=== PATIENT | male | born 1965 | race Two or more races ===

== ENCOUNTER → 2024-12-07 | Outpatient (CLI) | payer MEDICAID, SELFPAY ==
--- NOTE | 2024-12-07 10:56 | XR_ITS ---
Examination: Lumbar spine, 5 views Technique: Lumbar spine AP, lateral, coned lateral lower lumbar spine, bilateral obliques 5 views Exam date and time: December 07, 2024 1050 hrs. Indications: Injury to lower back 8 months ago with persistent back pain. Findings: Moderate osteopenia No lumbar fracture Diffuse [id number] lumbar disc narrowing most prominent at L5-S1 No spondylolisthesis Impression: No lumbar fracture Diffuse [id number] lumbar degenerative disc disease
== END | disposition home or self-care (01) ==
PROVIDERS: Referring Provider Nurse Practitioner; Visit Provider Nurse Practitioner
DX: M51.369 Other intervertebral disc degeneration, lumbar region without mention of lumbar back pain or lower extremity pain (principal)
CPT/HCPCS: 72110

== ENCOUNTER → 2025-01-02 | Outpatient (CLI) | payer MEDICAID, SELFPAY ==
--- NOTE | 2025-01-02 16:35 | XR_ITS ---
Examination: Knee bilateral, 6 views Technique: Knee AP, lateral, oblique each knee total 6 views Date and time of exam: January 02, 2025 at 1638 hours INDICATIONS: Knee pain acute onset this week FINDINGS: Mild osteopenia. No fracture or dislocation involving either knee Mild bilateral tricompartment osteoarthritis Small bilateral knee effusions IMPRESSION: Mild bilateral tricompartment osteoarthritis
== END | disposition home or self-care (01) ==
LOC: CDIM 16:31
PROVIDERS: Referring Provider Nurse Practitioner; Visit Provider Nurse Practitioner
DX: M17.0 Bilateral primary osteoarthritis of knee (principal)
CPT/HCPCS: 73562

== ENCOUNTER 2025-02-09 12:29 | Inpatient (IN) | payer MEDICAID, SELFPAY ==
[2025-02-09] VITALS (11 sets, daily range): BP systolic 106–149; BP diastolic 59–89; PULSE 48–86; RESP 16–29; TEMP 36.2–39.4; O2SAT 91–100; BMI 27.2; BMI 26.4; BMI 27.8
--- NOTE | 2025-02-09 13:12 | PC.NURSE ---
called for pt from lobby/outside, no answerx1@ [id number]
--- NOTE | 2025-02-09 13:28 | XR_ITS ---
Examination: AP chest lateral 2 views TECHNIQUE: AP labral portable upright chest 2 views Exam date and time: February 09, 2025, 1358 hours INDICATIONS: Shortness but chest pain today FINDINGS: No significant cardiac enlargement. Mild vascular congestion. No lobar pneumonia or pulmonary edema IMPRESSION: Mild vascular congestion
--- NOTE | 2025-02-09 13:28 | EKG_ITS ---
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
--- NOTE | 2025-02-09 13:29 | PD.EDRME ---
Rapid Medical Screening Exam RME Arrival date/time: 02/09/25 12:29 This is a 59-year-old male that comes in with complaints of fever, body aches, headache, sore throat that started 2 days ago. Patient states he was coughing and had some chest pain as well. I have greeted and performed a focused initial assessment of this patient. Initial appropriate labs ordered at this time. A comprehensive ED assessment and evaluation of the patient and analysis of all test and completion of medical decision making process will be conducted by additional ED provider. Chief Complaint: Chest Pain Time Seen by Provider: 02/09/25 12:49 Vital signs: Vital Signs Temperature 102.9 F H 02/09/25 13:19 Pulse Rate 80 02/09/25 13:19 Respiratory Rate 18 02/09/25 13:19 Blood Pressure 149/80 H 02/09/25 13:19 Pulse Oximetry (%) 94 L 02/09/25 13:19 Oxygen Delivery Method Room Air 02/09/25 13:19
[2025-02-09] MEDS: ACETAMINOPHEN 500 MG TABLET 1000 MG PO (13:46)
[2025-02-09] MEDS: IBUPROFEN TAB 400 MG TABLET 800 MG PO (13:47)
--- NOTE | 2025-02-09 14:16 | EKG_ITS ---
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
--- NOTE | 2025-02-09 15:20 | PC.NURSE ---
PT CAME INTO ED FOR CHEST PAIN
[2025-02-09 15:42] LABS: Basophils % (Auto) 0 % (0-2.5); Eosinophils % (Auto) 0 % (0-10); Hematocrit 36.1 % (41.0-53.0); Hemoglobin 12.8 g/dL (13.5-16.0); Immature Granulocytes % (Auto) 0 % (0-0); Immature Granulocytes Auto 0.02 Thou/mm3 (0.00-0.00); Lymphocytes # (Auto) 0.2 Thou/mm3 (1.0-4.8); Lymphocytes % (Auto) 4 % (10-50); Mean Corpuscular HGB Conc 35.5 g/dl (31.0-37.0); Mean Corpuscular Hemoglobin 28.5 pg (25.0-35.0); Mean Corpuscular Volume 80 fL (80-100); Monocytes # (Auto) 0.3 Thou/mm3 (0.0-0.8); Monocytes % (Auto) 5 % (0-12); Neutrophils # (Auto) 4.3 Thou/mm3 (1.8-7.7); Neutrophils % (Auto) 90 % (37-80); Nucleated Red Blood Cell % 0 /100 WBC (0); Platelet Count 115 Thou/mm3 (140-440); RDW Standard Deviation 37.2 fL (35.1-43.9); Red Blood Count 4.49 Miln/mm3 (4.50-5.90); White Blood Count 4.8 Thou/mm3 (3.8-10.6)
[2025-02-09 16:02] LABS: B-Type Natriuretic Peptide 59 pg/mL (0-100)
[2025-02-09 16:05] LABS: Alanine Aminotransferase 19 U/L (10-49); Albumin, Serum 4.2 gm/dL (3.5-5.0); Albumin/Globulin Ratio 1.6 (1.2-2.2); Alkaline Phosphatase 57 U/L (46-116); Anion Gap 10 (7-16); Aspartate Amino Transferase 26 U/L (0-34); BUN/Creatinine Ratio 14 Ratio (12-20); Bilirubin,Total 0.7 mg/dL (0.3-1.2); Blood Urea Nitrogen 13 mg/dL (9-23); Calcium 8.1 mg/dL (8.3-10.6); Calcium (Corrected) 8.1 mg/dL (8.5-10.1); Carbon Dioxide 24.5 mMol/L (20.0-31.0); Chloride 103 mMol/L (98-107); Creatinine (Component) 0.9 mg/dL (0.6-1.3); Estimated Creatinine Clearance 105.3 mL/min (>60); Globulin 2.6 gm/dL (2.3-3.5); Glucose 111 mg/dL (74-106); Lipase 30 U/L (12-53); Osmolality,Calculated 274 (275-295); Potassium 3.4 mMol/L (3.4-5.1); Sodium 137 mMol/L (136-145); Total Protein 6.8 gm/dL (5.7-8.2); Troponin I < 0.020 ng/mL (0.0-0.045); eGFR > 60 See Note
[2025-02-09 16:07] LABS: Thyroid Stimulating Hormone 1.25 uIU/mL (0.55-4.78)
[2025-02-09 18:46] LABS: Creatine Kinase 205 U/L (34-171); Magnesium 1.5 mg/dL (1.6-2.6); Phosphorous 3.4 mg/dL (2.4-5.1)
--- NOTE | 2025-02-09 19:13 | EKG_ITS ---
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
--- NOTE | 2025-02-09 19:23 | PC.NURSE ---
provider put in order for new ekg does not want done until midnight
--- NOTE | 2025-02-09 19:30 | ESHP_ITS ---
<Statement entered by Lillian Hernandez MD - 02/10/25 06:46> Patient was seen and examined at bedside. I agree on most of the assessment and plan of this patient. - Patient's plan and care discussed with my attending, Dr. Mason Hernandez MD Internal Medicine PGY-2 Documentation for date of: 02/09/25 HPI History of Present Illness History of present illness: Js is a 59 y/o male with PMHx of hyperlipidemia, ? Heart failure, ? Hypertension who comes in for an evaluation of fever, chills, and chest pain going across chest wall. Patient reports that this had started this morning in which he began to feel some chest pain with some palpitations. He also says that he attended a of his cousin yesterday that was in town and he says that he was close with his cousin. Denies having any shortness of breath headache, vomiting, passing out. He says that he goes to [place] often and that he was diagnosed with some kind of heart disease in which he takes a medicine (appears to be aspirin 500 mg in [place]) for his heart. He also says that he gets some epigastric pain and and has had an endoscopy and was told to avoid lying flat to avoid those symptoms. He denies any recent sick contacts or anyone near him feeling like this. He rates his chest pain as minimal at this time. He denies being on any other heart medicine. He does not know if he has atrial fibrillation. No other complaints this time. ED course: Patient arrived to the ED with a temperature of 103, heart rate 88, respiratory rate 18, blood pressure 149/80, saturating 94% on room air. He was worked up was found to have potassium of 3.4, BUN/creatinine 13 and 0.9 respectively, white count 9.8, hemoglobin 12.8, AST ALT 26 and 19 respectively, BNP 54, TSH 1.25. Chest x-ray showed mild congestion. 2 EKGs were done, despite the read showing atrial fibrillation, however my interpretation is not A-fib as this appears to be some form of 2:1 rhythm rate under 100, no ST changes, and possible delta wave seen in lead II of the first EKG. Patient was given 1 g Tylenol and ibuprofen 800 mg. Medicine was consulted and patient was admitted for observation for further workup. PMHx: As above Surgeries: Denies having any surgeries Meds: Limited at this time Allergies: Says he is allergic to penicillins Family Hx: Family history significant for diabetes with his mom. No CAD, stroke history or cancer history per patient. Social Hx: No from [place] in mid October. Works in the [employer]. Used to be a heavy drinker long time ago, however does not drink anymore and will only drink on occasion. No smoking history. Used to snort cocaine back in day however has does not do it anymore. No IV drug use. Review of Systems Review of Systems Narrative Review of Systems: Constitutional: Positive fever, positive chills, fatigue, weakness, weight loss HEENT: No eye pain, vision loss, ear pain, hearing loss, dysphagia, Cardiovascular: Positive chest pain, palpitations, edema, pain with walking Respiratory: No cough, shortness of breath, wheezing GI: No NVD, abdominal pain, constipation, blood in stool, loss of appetite, heartburn Extremities: No presence of pitting edema MSK: No back pain, joint pain, joint swelling Neuro: No dizziness, numbness, weakness, headaches, seizures, tremors Psych: No anxiety, depression Exam Vital Signs Temp Pulse Resp BP Pulse Ox O2 Del Method 97.8 F 49 L 21 H 117/72 94 L Room Air 02/09/25 18:28 02/09/25 18:28 02/09/25 18:28 02/09/25 18:28 02/09/25 18:28 02/09/25 18:28 Narrative Exam General: AAOx3, NAD, [place]-speaking male, well-built HEENT: Moist mucous membranes, conjunctiva clear, EOMI, PERRLA, Cardiovascular: S1, S2, radial pulses +2 bilat, bradycardia, reproducible chest pain that is minimal and right and left lower pectoralis Pulmonary: CTAB bilat no cough, no wheezing GI: No tenderness to light or deep palpitation, no guarding, rigidity, rebound tenderness or distension Extremities: No presence of trace or pitting edema in lower extremities bilaterally, dorsalis pedis pulses +2 bilaterally Neuro: AAOx3, no focal motor or sensory deficits in the UE or LE bilat Psych: Good judgement, thought and behavior. Cooperative Results: Labs 02/10/25 06:14 02/10/25 06:14 Labs: Short CBC 02/09/25 Range/Units 15:12 WBC 4.8 (3.8-10.6) Thou/mm3 Hgb 12.8 L (13.5-16.0) g/dL Hct 36.1 L (41.0-53.0) % Plt Count 115 L (140-440) Thou/mm3 BMP 02/09/25 15:12 Sodium 137 Potassium 3.4 Chloride 103 Carbon Dioxide 24.5 BUN 13 Creatinine 0.9 Glucose 111 H Calcium 8.1 L Cardiac Enzymes 02/09/25 Range/Units 15:12 Total Creatine Kinase 205 H (34-171) U/L Troponin I < 0.020 (0.0-0.045) ng/mL Liver Function 02/09/25 Range/Units 15:12 Total Bilirubin 0.7 (0.3-1.2) mg/dL AST 26 (0-34) U/L ALT 19 (10-49) U/L Alkaline Phosphatase 57 (46-116) U/L Albumin 4.2 (3.5-5.0) gm/dL Quality Measures Quality Measures VTE prophylaxis (SCDs) Medications Home Medications and Allergies Home Medications ?Medication ?Instructions ?Recorded ?Confirmed ?Type No Known Home Medications 02/09/2501/01 History Allergies Allergy/AdvReac Type Severity Reaction Status Date / Time Penicillins Allergy Verified 02/09/25 13:42 Visit Medications Acetaminophen (Acetaminophen 325 Mg Tablet) 650 mg PO Q6H PRN PRN Reason: Fever >100 or pain 1-3 Stop: 03/11/25 19:22 Magnesium Sulfate (Magnesium Sulfate Ivpb) 2 gm in 50 mls @ 25 mls/hr IV X1 ONE Stop: 02/09/25 21:19 Potassium Chloride (Kcl Ivpb) 10 meq in 100 mls @ 100 mls/hr IV Q1H BRY Stop: 02/09/25 21:27 Ondansetron HCl (Ondansetron Inj 2 Mg/Ml Inj 2 Ml) 4 mg IV Q6H PRN; Protocol PRN Reason: NAUSEA OR VOMITING Stop: 03/11/25 19:22 Pantoprazole Sodium (Pantoprazole 40 Mg Tablet) 40 mg PO QDAY BRY Stop: 03/11/25 19:29 Potassium Chloride (Potassium Chloride 20 Meq Tabcr) 40 meq PO X1 ONE Stop: 02/09/25 19:24 Discontinued Medications Acetaminophen (Acetaminophen 500 Mg Tablet) 1,000 mg PO X1 ONE Stop: 02/09/25 13:30 Last Admin: 02/09/25 13:46 Dose: 1,000 mg Ibuprofen (Ibuprofen Tab 400 Mg Tablet) 800 mg PO X1 ONE Stop: 02/09/25 13:30 Last Admin: 02/09/25 13:47 Dose: 800 mg Assessment & Plan Plan Assessment Js is a 59 y/o male with PMHx of hyperlipidemia, ? Heart failure, ? Hypertension who is admitted for asymptomatic bradycardia. #Asymptomatic bradycardia #Chest pain DDx: Sick sinus syndrome, heart block, medication induced, infectious including myocarditis, infective endocarditis, electrolyte depletion At this time this patient is not asymptomatic due to nature of his symptoms which include fever, chills which was addressed with antipyretics Symptomatic bradycardia would likely presents with weakness, dizziness and potentially passing out, however this patient's symptoms appear to be infectious with minimal and reproducible chest pain Patient recently also had a stressful events in his life including attending a yesterday Medication history is limited at this time as patient takes medicines from [place] so unsure what additional medicines patient may take Patient could have infectious cause of bradycardia including myocarditis or infective endocarditis, however he denies any history of drug use but this does not rule out myocarditis or any infectious process Patient does have electrolyte derangements including potassium 3.4 and magnesium 1.5 At patient's age unlikely patient would have sick sinus syndrome however this cannot be ruled out at this time Patient will likely require further workup as patient began to become bradycardic after being admitted and was given antipyretics EKG does appear to have 2-1 rhythm, P waves appear to be present No ST changes on EKG, reproducible chest pain is present and also biomarkers are negative at this point, unlikely cardiac chest pain could be musculoskeletal or related to infection Due to blood pressure being stable at this time and patient not complaining of weakness, patient will not likely require ICU point of care in case of transcutaneous pacing to be needed however this can change at any point in time Will recheck EKG after electrolyte derangements are corrected Due to concern for infective endocarditis we will start patient on antibiotics Plan: ? Cardiology consulted, appreciate recs ? Telemetry ? Keep potassium and magnesium above 4 and 2 respectively ? EKG post electrolyte replenishment ? Atropine as needed ? Echo ? Trend troponin ? Cardiac stratification ? Follow-up MRSA screen ? Rocephin 2 g and vancomycin pharmacy to dose ? Antipyretics ? Follow-up urine drug screen #Health Maintenance Disposition: Telemetry DVT prophylaxis: SCDs GI prophylaxis: Protonix Diet: N.p.o. after midnight CODE STATUS: Full code Patient seen and care discussed with my senior resident, Dr. Cuevas , and my attending physician, Dr. Mary Buenrostro, PGY-1 Attending Provider Attestation/Addendum I have examined the patient, reviewed labs and imaging findings, discussed the case with the resident(s), and reviewed entered orders. I agree with the plan of care as outlined in this note, with these additional summaries/recommendations: Patient admitted to observation for bradycardia and likely asymptomatic although he is endorsing generalized weakness. Patient also endorsing some sternal chest pain that is dull in nature and nonradiating. Patient will be admitted to observation. Also noted to have fever of unknown origin and blood cultures although suspicion is low at this time. Patient's symptoms may be related to stress/anxiety given he attended a family member's day prior to arrival. Order echo to rule out Takotsubo. will continue to monitor hemodynamics closely with serial EKGs and troponins. We will continue to monitor bradycardia and reach out if patient becomes more symptomatic. DR. Mason MD
[2025-02-09 19:39] LABS: Immature Reticulocyte Fraction 4.4 % (2.3-13.4); Reticulocyte Absolute Auto 44.6 Biln/L (25.0-75.0); Reticulocyte Hgb Content 32.9 pg (28.0-35.0)
[2025-02-09 19:51] LABS: Path Review Blood Smear Sent to Pathologist
[2025-02-09] MEDS: Magnesium Sulfate 2 GM Ivpb 2 GM/50 ML BAG IV (19:54)
[2025-02-09] MEDS: POTASSIUM CHLORIDE 20 mEq TABCR 40 MEQ PO (19:55)
[2025-02-09] MEDS: POTASSIUM CHL 10 mEq IVPB 10 MEQ/100 ML BAG 100 MEQ IV (19:55)
[2025-02-09] MEDS: PANTOPRAZOLE 40 MG TABLET PO (19:56)
[2025-02-09 20:17] LABS: Iron 19 mcg/dL (65-175); Percent Iron Saturation 5 % (20-55); Total Iron Binding Capacity 319 mcg/dL (250-425); Unsaturated Iron Binding 300 (225-295)
[2025-02-09] MEDS: POTASSIUM CHL 10 mEq IVPB 10 MEQ/100 ML BAG 75 MEQ IV (21:17)
[2025-02-09] MEDS: cefTRIAXone 2 GM in SODIUM CHLORIDE 0.9% (Popper) 50 ML IV (21:17)
--- NOTE | 2025-02-09 22:14 | EVENTNT_ITS ---
<Statement entered by Dante Manley MD - 02/10/25 06:00> Patient seen and examined at bedside with resident. Agree with assessment and plan as dictated below. Dante Manley MD Documentation for date of: 02/09/25 Event Note Event Note: Rapid response was called at 9:45 PM, due to bradycardia. Patient was noted to have a heart rate of 49/min, complaining of dizziness upon walking, also complained of chest pain which is now improving since admission. Patient was admitted for chest pain, initial EKG showed A-fib rate controlled, negative troponins on admission, after rapid response, repeat EKG showed sinus bradycardia with dynamic EKG changes noted T inversion in inferior leads. Patient was started on heparin drip, given aspirin loading dose. As patient reported resolution of chest pain since admission, we held off on the morphine or nitro at this point. Vitals at this moment stable systolic blood pressure in the 130s, saturating 100% on room air, afebrile. Problems: 1. Sinus bradycardia 2. Concern for inferior wall NSTEMI Plan: ? IV atropine as needed was already ordered ? IV heparin gtt. ? Aspirin loading dose 325 mg ? IV Protonix x 1, continue with p.o. Protonix daily ? Repeat troponins ordered ? Appreciate cardiology recommendations Plan of care was discussed with attending Dr. Manley. Kristopher PGY 2
[2025-02-09 22:30] LABS: Troponin I < 0.020 ng/mL (0.0-0.045)
[2025-02-09] MEDS: Magnesium Sulfate 4 GM Ivpb 4 GM/50 ML BAG IV (22:30)
[2025-02-09] MEDS: PANTOPRAZOLE INJ 40 MG VIAL IV (22:30)
[2025-02-09] MEDS: Vancomycin Inj 2,000 MG in SODIUM CHLORIDE 0.9% 500 ML 500 ML 150 MG IV (22:53)
[2025-02-09 23:21] LABS: Collection Type, Urine Clean Catch; Squamous Epithelial Cell,Urine 0 /hpf (0-5)
[2025-02-09 23:30] LABS: Bilirubin,Urine Negative (Negative); Blood,Urine Negative (Negative); Clarity,Urine Clear (Clear/Hazy); Color,Urine Lt-Yellow (Lt Yel-Yel); Glucose, Urine Negative (Negative); Ketones,Urine Trace (Negative); Leukocyte Esterase,Urine Negative (Negative); Nitrite,Urine Negative (Negative); Protein,Urine Negative (Neg - Trace); RBC,Urine < 1 /hpf (0-3); Specific Gravity,Urine 1.012 (1.001-1.035); Urobilinogen,Urine Negative mg/dL (0.0-1.0); WBC,Urine 1 /hpf (0-5)
[2025-02-09] MEDS: CALCIUM GLUCONATE 10% INJ 1 GM/10 ML VIAL IV (23:31)
[2025-02-09 23:36] LABS: Amphetamine/Methamp Scrn,U Negative (Negative); Barbiturate Screen,Urine Negative (Negative); Benzodiazepines Screen,Urine Negative (Negative); Benzoylecgonine Screen, Ur Negative (Negative); Fentanyl Screen,Urine Negative (Negative); Opiate Screen,Urine Negative (Negative); THC Screen,Urine Negative (Negative)
[2025-02-10] VITALS (8 sets, daily range): BP systolic 123–151; BP diastolic 72–85; PULSE 43–72; RESP 19–23; TEMP 36.3–36.6; O2SAT 91–100; BMI 27.1
[2025-02-10] MEDS: HEPARIN SOD INJ 5000 UNIT/ML VIAL 4000 UNIT IV (00:05)
[2025-02-10] MEDS: Heparin/D5w 25K 250 ML Ivpb 25,000 UNIT/250 ML BAG 9.997 UNIT IV (00:19)
--- NOTE | 2025-02-10 00:33 | PC.NURSE ---
[employer] called due to symptomatic bradycardia. pt complaint of chest pain (improved since initial visit). EKG, labs and meds (SEE MAR) ordered
[2025-02-10] MEDS: ACETAMINOPHEN 325 MG TABLET 650 MG PO (05:28)
[2025-02-10 06:59] LABS: Basophils % (Auto) 0 % (0-2.5); Eosinophils % (Auto) 0 % (0-10); Hematocrit 37.4 % (41.0-53.0); Hemoglobin 12.6 g/dL (13.5-16.0); Immature Granulocytes % (Auto) 0 % (0-0); Immature Granulocytes Auto 0.02 Thou/mm3 (0.00-0.00); Lymphocytes # (Auto) 0.8 Thou/mm3 (1.0-4.8); Lymphocytes % (Auto) 16 % (10-50); Mean Corpuscular HGB Conc 33.7 g/dl (31.0-37.0); Mean Corpuscular Hemoglobin 28.3 pg (25.0-35.0); Mean Corpuscular Volume 84 fL (80-100); Monocytes # (Auto) 0.5 Thou/mm3 (0.0-0.8); Monocytes % (Auto) 10 % (0-12); Neutrophils # (Auto) 3.6 Thou/mm3 (1.8-7.7); Neutrophils % (Auto) 73 % (37-80); Nucleated Red Blood Cell % 0 /100 WBC (0); Platelet Count 98 Thou/mm3 (140-440); RDW Standard Deviation 39.5 fL (35.1-43.9); Red Blood Count 4.45 Miln/mm3 (4.50-5.90)
[2025-02-10 07:14] LABS: Alanine Aminotransferase 19 U/L (10-49); Albumin/Globulin Ratio 1.5 (1.2-2.2); Alkaline Phosphatase 53 U/L (46-116); Anion Gap 10 (7-16); Aspartate Amino Transferase 32 U/L (0-34); BUN/Creatinine Ratio 16 Ratio (12-20); Bilirubin,Total 0.5 mg/dL (0.3-1.2); Blood Urea Nitrogen 14 mg/dL (9-23); Calcium 8.1 mg/dL (8.3-10.6); Calcium (Corrected) 8.1 mg/dL (8.5-10.1); Carbon Dioxide 24.8 mMol/L (20.0-31.0); Cardiac Risk Estimate 3.9 RATIO (4.0-6.7); Chloride 104 mMol/L (98-107); Cholesterol 145 mg/dL (132-200); Creatinine (Component) 0.9 mg/dL (0.6-1.3); Estimated Creatinine Clearance 105.3 mL/min (>60); Globulin 2.6 gm/dL (2.3-3.5); Glucose 102 mg/dL (74-106); HDL Cholesterol 37 mg/dL (40-60); LDL Cholesterol,Calculated 100 mg/dL (0-130); Osmolality,Calculated 278 (275-295); Phosphorous 2.9 mg/dL (2.4-5.1); Potassium 4.3 mMol/L (3.4-5.1); Sodium 139 mMol/L (136-145); Thyroid Stimulating Hormone 1.83 uIU/mL (0.55-4.78); Total Protein 6.6 gm/dL (5.7-8.2); Triglycerides 41 mg/dL (30-150); eGFR > 60 See Note
[2025-02-10 07:23] LABS: INR 1.3 (0.9-1.3); Partial Thromboplastin Time 54.8 Seconds (22.0-36.0); Prothrombin Time 13.6 Seconds (9.0-12.2)
[2025-02-10 07:34] LABS: Glucose Estimated Average 128 mg/dL (80-131); Hemoglobin A1C 6.1 % Hgb (4.8-6.0)
[2025-02-10] MEDS: PANTOPRAZOLE INJ 40 MG VIAL IV (08:45)
[2025-02-10] MEDS: cefTRIAXone 2 GM in SODIUM CHLORIDE 0.9% (Popper) 50 ML IV (08:45)
[2025-02-10] MEDS: Aspirin 325 MG TABLET PO (08:46)
[2025-02-10] MEDS: CALCIUM CARBONATE 600 MG TABLET PO (10:55)
--- NOTE | 2025-02-10 11:05 | PD.RESPRO ---
Documentation for date of: 02/10/25 Subjective Subjective Interval history: Patient examined at bedside today. Overnight events include rep response being called for chest pain, ACS workup was initiated, troponin biomarker was negative, no ST changes seen on EKG but possible T wave inversions. Patient was started on heparin drip and was loaded with aspirin. Patient reports that he has minimal chest pain at this time he says that he feels a bit better. He still notices that his heart rate is low, however denies having any palpitations. He is wondering when he can go home. He does endorse that his symptoms may be related to his GERD which this pain helps when he takes PPI. No other complaints this time Exam Vital Signs Temp Pulse Resp BP Pulse Ox O2 Del Method 97.8 F 54 L 19 123/72 92 L Room Air 02/10/25 08:00 02/10/25 08:00 02/10/25 08:00 02/10/25 08:00 02/10/25 08:00 02/10/25 08:00 Narrative Exam General: AAOx3, NAD, Citizen Of [place]-speaking male, well-built HEENT: Moist mucous membranes, conjunctiva clear, EOMI, PERRLA, Cardiovascular: S1, S2, radial pulses +2 bilat, bradycardia, reproducible chest pain that is minimal and right and left lower pectoralis Pulmonary: CTAB bilat no cough, no wheezing GI: No tenderness to light or deep palpitation, no guarding, rigidity, rebound tenderness or distension Extremities: No presence of trace or pitting edema in lower extremities bilaterally, dorsalis pedis pulses +2 bilaterally Neuro: AAOx3, no focal motor or sensory deficits in the UE or LE bilat Psych: Good judgement, thought and behavior. Cooperative Objective Labs 02/11/25 04:55 02/11/25 04:55 Labs: Laboratory Results - last 24 hr 02/09/25 02/09/25 02/09/25 15:12 22:02 22:28 WBC 4.8 RBC 4.49 L Hgb 12.8 L Hct 36.1 L MCV 80 MCH 28.5 MCHC 35.5 RDW Std Deviation 37.2 Plt Count 115 L Neut % (Auto) 90 H Lymph % (Auto) 4 L [place] % (Auto) 5 Eos % (Auto) 0 Baso % (Auto) 0 Neut # (Auto) 4.3 Lymph # (Auto) 0.2 L [place] # (Auto) 0.3 Eos # (Auto) 0.0 Baso # (Auto) 0.0 Immature Gran # (Auto) 0.02 H Absolute Nucleated RBC 0.00 Immature Gran % 0 Nucleated RBC % 0 Smear Path Review Sent to Pathologist Retic Count (auto) 1.0 Absolute Retic 44.6 Immature Retic Fraction 4.4 Retic Hgb Content CHr 32.9 PT INR APTT 21.0 L Sodium 137 Potassium 3.4 Chloride 103 Carbon Dioxide 24.5 Anion Gap 10 BUN 13 Creatinine 0.9 Estim Creat Clear Calc 105.3 eGFR > 60 BUN/Creatinine Ratio [address] Glu mg/dL Hemoglobin A1c Calculated Osmolality 274 L Calcium 8.1 L Corrected Calcium 8.1 L Phosphorus 3.4 Magnesium 1.5 L Iron 19 L TIBC 319 Iron Saturation 5 L Unsat Iron Binding 300 H Total Bilirubin 0.7 AST 26 ALT 19 Alkaline Phosphatase 57 Total Creatine Kinase 205 H Troponin I < 0.020 < 0.020 B-Natriuretic Peptide 59 Total Protein 6.8 Albumin 4.2 Globulin 2.6 Albumin/Globulin Ratio 1.6 Triglycerides Cholesterol LDL Cholesterol, Calc HDL Cholesterol Cholesterol/HDL Ratio Lipase 30 TSH 1.25 Ur Collection Type Urine Color Urine Clarity Urine pH Ur Specific [place] Urine Protein Urine Glucose (UA) Urine Ketones Urine Blood Urine Nitrite Urine Bilirubin Urine Urobilinogen (Auto) Ur Leukocyte Esterase Urine RBC Urine WBC Ur Squamous Epith Cells Urine Bacteria Urine Opiates Screen Urine Fentanyl Screen Ur Barbiturates Screen U Amphetamin/Meth Scrn U Benzodiazepines Scrn U Cocaine Metab Screen U Marijuana (THC) Screen 02/09/25 02/10/25 23:12 06:14 WBC 5.0 RBC 4.45 L Hgb 12.6 L Hct 37.4 L MCV 84 MCH 28.3 MCHC 33.7 RDW Std Deviation 39.5 Plt Count 98 L Neut % (Auto) 73 Lymph % (Auto) 16 [place] % (Auto) 10 Eos % (Auto) 0 Baso % (Auto) 0 Neut # (Auto) 3.6 Lymph # (Auto) 0.8 L [place] # (Auto) 0.5 Eos # (Auto) 0.0 Baso # (Auto) 0.0 Immature Gran # (Auto) 0.02 H Absolute Nucleated RBC 0.00 Immature Gran % 0 Nucleated RBC % 0 Smear Path Review Retic Count (auto) Absolute Retic Immature Retic Fraction Retic Hgb Content CHr PT 13.6 H INR 1.3 APTT 54.8 H D Sodium 139 Potassium 4.3 D Chloride 104 Carbon Dioxide 24.8 Anion Gap 10 BUN 14 Creatinine 0.9 Estim Creat Clear Calc 105.3 eGFR > 60 BUN/Creatinine Ratio [address] Glu mg/dL 128 Hemoglobin A1c 6.1 H Calculated Osmolality 278 Calcium 8.1 L Corrected Calcium 8.1 L Phosphorus 2.9 Magnesium 2.0 Iron TIBC Iron Saturation Unsat Iron Binding Total Bilirubin 0.5 AST 32 ALT 19 Alkaline Phosphatase 53 Total Creatine Kinase Troponin I B-Natriuretic Peptide Total Protein 6.6 Albumin 4.0 Globulin 2.6 Albumin/Globulin Ratio 1.5 Triglycerides 41 Cholesterol 145 LDL Cholesterol, Calc 100 HDL Cholesterol 37 L Cholesterol/HDL Ratio 3.9 L Lipase TSH 1.83 Ur Collection Type Clean Catch Urine Color Lt-Yellow Urine Clarity Clear Urine pH 6.0 Ur Specific [place] 1.012 Urine Protein Negative Urine Glucose (UA) Negative Urine Ketones Trace Urine Blood Negative Urine Nitrite Negative Urine Bilirubin Negative Urine Urobilinogen (Auto) Negative Ur Leukocyte Esterase Negative Urine RBC < 1 Urine WBC 1 Ur Squamous Epith Cells 0 Urine Bacteria None Urine Opiates Screen Negative Urine Fentanyl Screen Negative Ur Barbiturates Screen Negative U Amphetamin/Meth Scrn Negative U Benzodiazepines Scrn Negative U Cocaine Metab Screen Negative U Marijuana (THC) Screen Negative Quality Measures Quality Measures VTE prophylaxis (SCDs) Assessment & Plan Assessment Current Active Medications: Generic Name Dose Route Start Last Admin Trade Name Freq PRN Reason Stop Dose Admin Acetaminophen 650 mg 02/09/25 19:23 02/10/25 05:28 Acetaminophen 325 Mg Tablet PO 03/11/25 19:22 650 mg Q6H PRN Administration Fever >100 or pain 1-3 Aspirin 325 mg 02/10/25 09:00 02/10/25 08:46 Aspirin 325 Mg Tablet PO 03/12/25 08:59 325 mg QDAY BRY Administration Atorvastatin Calcium 40 mg 02/10/25 21:00 Atorvastatin Calcium 20 Mg Tablet PO 03/12/25 20:59 HS BRY Atropine Sulfate 1 mg 02/09/25 21:23 Atropine Sulf Inj 1 Mg/Ml Vial IVP 03/11/25 21:22 Q3M PRN symptomatic bradycardia Heparin Sodium/Dextrose 25,000 unit in 250 mls @ 9.997 mls/hr 02/10/25 00:15 02/10/25 00:19 Heparin In D5w Ivpb IV 02/23/25 22:44 10.18 units/kg/hr .Q24H BRY 9.997 mls/hr Administration Protocol 10.18 UNITS/KG/HR Ondansetron HCl 4 mg 02/09/25 19:23 Ondansetron Inj 2 Mg/Ml Inj 2 Ml IV 03/11/25 19:22 Q6H PRN NAUSEA OR VOMITING Protocol Pantoprazole Sodium 40 mg 02/10/25 09:00 02/10/25 08:45 Pantoprazole Inj 40 Mg Vial IV 03/12/25 08:59 40 mg QDAY BRY Administration Pharmacy Consult 1 each 02/09/25 21:00 Vancomycin Pharmacy To Dose 1 Each Each IV 03/11/25 20:59 QDAY PRN CONSULT Plan Assessment Js is a 59 y/o male with PMHx of prediabetes who admitted for asymptomatic bradycardia. #Asymptomatic bradycardia #ACS, ruled out #Noncardiac chest pain DDx: Sick sinus syndrome, heart block, medication induced, infectious including myocarditis, infective endocarditis, electrolyte depletion At this time this patient is not asymptomatic due to nature of his symptoms which include fever, chills which was addressed with antipyretics Symptomatic bradycardia would likely presents with weakness, dizziness and potentially passing out, however this patient's symptoms appear to be infectious with minimal and reproducible chest pain Patient recently also had a stressful events in his life including attending a yesterday Medication history is limited at this time as patient takes medicines from [place] so unsure what additional medicines patient may take Patient could have infectious cause of bradycardia including myocarditis or infective endocarditis, however he denies any history of drug use but this does not rule out myocarditis or any infectious process Patient does have electrolyte derangements including potassium 3.4 and magnesium 1.5 At patient's age unlikely patient would have sick sinus syndrome however this cannot be ruled out at this time Patient will likely require further workup as patient began to become bradycardic after being admitted and was given antipyretics EKG does appear to have bigeminy ACS ruled out at this time as he is not having active chest pain, no ST changes and biomarkers are negative at this time will stop heparin drip Due to patient having fever, we would like to rule out infectious cause and want to see what blood cultures show, however this could all be related due to stress His heart rate is still low today, however he was able to walk on his own Prediabetics for cardiac stratification, LDL 100, total cholesterol 145 UDS negative Plan: ? Cardiology consulted, appreciate recs ? Telemetry ? Keep potassium and magnesium above 4 and 2 respectively ? Atropine as needed ? Echo ? Follow-up MRSA screen ? Discontinuing antibiotics at this time ? Antipyretics ? Follow-up [place] fever ? Protonix 40 mg IV #Thrombocytopenia 112 on admission, 98 currently Patient is not actively bleeding Plan: ? Trend with CBC ? Follow-up blood smear ? Discontinuing Heparin #Health Maintenance Disposition: Telemetry DVT prophylaxis: SCDs GI prophylaxis: Protonix Diet: Cardiac diet CODE STATUS: Full code Patient seen and care discussed with my attending physician, Dr. Mason Buenrostro, PGY-1 Attending Provider Attestation/Addendum I have examined the patient, reviewed labs and imaging findings, discussed the case with the resident(s), and reviewed entered orders. I agree with the plan of care as outlined in this note. Dr. Mason MD
[2025-02-10 11:07] LABS: Troponin I < 0.020 ng/mL (0.0-0.045)
--- NOTE | 2025-02-10 14:38 | ESCONSULT_ITS ---
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 Patient in sinus rhythm sinus bradycardia on cardiac monitoring appears to have competing junctional rhythms with A-V dissociation this is not significant to be concerned. EKGs are otherwise normal no ischemia. All the cardiac enzymes are normal Not impressed with a cardiac story no major risk factors cholesterol LDL is only 100 not diabetic not a smoker hence low probability for significant CAD patient can be discharged home to have further evaluation as an outpatient with possibly echo and stress test. Recommended the patient to be referred to filer metal patterns following discharge by the primary care physician evaluate the patient and went over the primary care team and in detail agree with the treatment plan recommendation as documented. No need for anticoagulation or heparin at this time not suspecting ACS not planning any angiogram. All the essential components of consultation report reviewed by me agree with the treatment plan recommendation as documented by PGY 2 Dr. Mendoza The patient appears to have mostly GI symptoms recommend pantoprazole 30-day trial of 40 mg daily dose should help his symptoms. HPI Data of Consult Requesting Physician: Willian Cuevas MD Admitting Provider: Willian Cuevas MD Attending Provider: Willian Cuevas MD Primary Care Provider: Physician No Primary/Family Consult Narrative Reason for consult: Bradycardia History of present illness: Patient is a 59 years old male with PMHx of hyperlipidemia and hypertension presented to the ED due to fever, chills, and chest pain going across chest wall, labs showed negative troponin, EKG showed bigemeny, and he was admitted for further work up. He had rapid response called due to bradycardia, while evaluated his rhythm changed to bigemeny and some ST-segment changes were noted, he was started on aspirin 325 mg and heparin drip and cardiology was consulted. Patient was seen and examined at the bedside. Patient reports feeling at the baseline and denies any complaints. He denies any chest pain, palpitations, weakness, shortness of breath, fever, chills. While evaluated his heart rate is at 45. As patient is asymptomatic no intervention is recommended at this time. Continue monitoring patient. cc:: cc: Willian Cuevas MD Review of Systems Review of Systems Systems Reviewed: All systems reviewed, normal except as documented Exam Vital Signs Temp Pulse Resp BP Pulse Ox O2 Del Method 97.7 F 46 L 19 145/85 H 93 L Room Air 02/10/25 12:02/10/25 12:02/10/25 12:02/10/25 12:02/10/25 12:02/10/25 12:00 Narrative Exam Gen: Well-developed and well-nourished male. HEENT: NCAT, PERRLA, EOMI, MMM, anicteric conjunctivae. CVS: normal S1 and S2. Regular bradycardia. No M/R/G. Resp: CTA B/L. No rhonchi, rales, crackles or wheezing. Abd: soft, non-tender, non-distended. BS+ in all 4 quadrants. MSK: Good ROM in BUE & BLE. No edema or rash. Neuro: CN II-XII grossly intact. Strength 5/5 in BUE & BLE. Alert and oriented x3. Psych: appropriate mood and affect. Results Labs 02/10/25 06:14 02/10/25 06:14 Labs: Short CBC 02/09/25 02/10/25 Range/Units 15:12 06:14 WBC 4.8 5.0 (3.8-10.6) Thou/mm3 Hgb 12.8 L 12.6 L (13.5-16.0) g/dL Hct 36.1 L 37.4 L (41.0-53.0) % Plt Count 115 L 98 L (140-440) Thou/mm3 BMP 02/09/25 02/10/25 15:12 06:14 Sodium 137 139 Potassium 3.4 4.3 D Chloride 103 104 Carbon Dioxide 24.5 24.8 BUN 13 14 Creatinine 0.9 0.9 Glucose 111 H 102 Calcium 8.1 L 8.1 L Cardiac Enzymes 02/09/25 02/09/25 02/10/25 Range/Units 15:12 22:02 06:14 Total Creatine Kinase 205 H (34-171) U/L Troponin I < 0.020 < 0.020 < 0.020 (0.0-0.045) ng/mL Liver Function 02/09/25 02/10/25 Range/Units 15:12 06:14 Total Bilirubin 0.7 0.5 (0.3-1.2) mg/dL AST 26 32 (0-34) U/L ALT 19 19 (10-49) U/L Alkaline Phosphatase 57 53 (46-116) U/L Albumin 4.2 4.0 (3.5-5.0) gm/dL Urine 02/09/25 Range/Units 23:12 Urine Color Lt-Yellow (Lt Yel-Yel) Urine Clarity Clear (Clear/Hazy) Urine pH 6.0 (5.0-7.0) Ur Specific [place] 1.012 (1.001-1.035) Urine Protein Negative (Neg - Trace) Urine Glucose (UA) Negative (Negative) Quality Measures Quality Measures VTE prophylaxis Medications Home Medications and Allergies Home Medications ?Medication ?Instructions ?Recorded ?Confirmed ?Type No Known Home Medications 02/09/2501/01 History Allergies Allergy/AdvReac Type Severity Reaction Status Date / Time Penicillins Allergy Verified 02/09/25 13:42 Visit Medications Acetaminophen (Acetaminophen 325 Mg Tablet) 650 mg PO Q6H PRN PRN Reason: Fever >100 or pain 1-3 Stop: 03/11/25 19:22 Last Admin: 02/10/25 05:28 Dose: 650 mg Atorvastatin Calcium (Atorvastatin Calcium 20 Mg Tablet) 40 mg PO HS [facility] Stop: 03/12/25 20:59 Atropine Sulfate (Atropine Sulf Inj 1 Mg/Ml Vial) 1 mg IVP Q3M PRN PRN Reason: symptomatic bradycardia Stop: 03/11/25 21:22 Ondansetron HCl (Ondansetron Inj 2 Mg/Ml Inj 2 Ml) 4 mg IV Q6H PRN; Protocol PRN Reason: NAUSEA OR VOMITING Stop: 03/11/25 19:22 Pantoprazole Sodium (Pantoprazole Inj 40 Mg Vial) 40 mg IV QDAY [facility] Stop: 03/12/25 08:59 Last Admin: 02/10/25 08:45 Dose: 40 mg Pharmacy Consult (Vancomycin Pharmacy To Dose 1 Each Each) 1 each IV QDAY PRN PRN Reason: CONSULT Stop: 03/11/25 20:59 Discontinued Medications Acetaminophen (Acetaminophen 500 Mg Tablet) 1,000 mg PO X1 ONE Stop: 02/09/25 13:30 Last Admin: 02/09/25 13:46 Dose: 1,000 mg Aspirin (Aspirin 325 Mg Tablet) 325 mg PO QDAY [facility] Stop: 03/12/25 08:59 Last Admin: 02/10/25 08:46 Dose: 325 mg Calcium Carbonate (Calcium Carbonate 600 Mg Tablet) 600 mg PO X1 ONE Stop: 02/10/25 10:25 Last Admin: 02/10/25 10:55 Dose: 600 mg Calcium Gluconate (Calcium Gluconate 10% Inj 1 Gm/10 Ml Vial) 1 gm IV X1 ONE Stop: 02/09/25 22:43 Last Admin: 02/09/25 23:31 Dose: 1 gm Heparin Sodium (Porcine) (Heparin Sod Inj 5000 Unit/Ml Vial) 4,000 unit IV X1 ONE; Protocol Stop: 02/09/25 22:41 Last Admin: 02/10/25 00:05 Dose: 4,000 unit Magnesium Sulfate (Magnesium Sulfate Ivpb) 2 gm in 50 mls @ 25 mls/hr IV X1 ONE Stop: 02/09/25 21:19 Last Infusion: 02/09/25 22:16 Dose: Infused Potassium Chloride (Kcl Ivpb) 10 meq in 100 mls @ 100 mls/hr IV Q1H [facility] Stop: 02/09/25 21:27 Last Infusion: 02/10/25 01:35 Dose: Infused Ceftriaxone Sodium 2 gm/ (Sodium Chloride) 50 mls @ 100 mls/hr IV QDAY [facility] Stop: 02/16/25 20:06 Last Admin: 02/10/25 08:45 Dose: 100 mls/hr Vancomycin HCl 2,000 mg/ (Sodium Chloride) 500 mls @ 150 mls/hr IV X1 ONE Stop: 02/09/25 23:49 Last Admin: 02/09/25 22:53 Dose: 150 mls/hr Magnesium Sulfate (Magnesium Sulfate Ivpb) 4 gm in 50 mls @ 12.5 mls/hr IV X1 ONE Stop: 02/10/25 01:36 Last Admin: 02/09/25 22:30 Dose: 12.5 mls/hr Heparin Sodium/Dextrose (Heparin In D5w Ivpb) 25,000 unit in 250 mls @ 11.224 mls/hr IV .[id number] [facility]; Protocol Stop: 02/23/25 22:44 Heparin Sodium/Dextrose (Heparin In D5w Ivpb) 25,000 unit in 250 mls @ 9.997 mls/hr IV .Q24H [facility]; Protocol Stop: 02/23/25 22:44 Last Admin: 02/10/25 00:19 Dose: 10.18 units/kg/hr, 9.997 mls/hr Vancomycin HCl/Dextrose (Vancomycin/D5w 1,250 Mg Ivpb) 250 mls @ 120 mls/hr IV BID@1000,2200 [facility] Stop: 02/17/25 09:59 Last Admin: 02/10/25 10:43 Dose: Not Given Ibuprofen (Ibuprofen Tab 400 Mg Tablet) 800 mg PO X1 ONE Stop: 02/09/25 13:30 Last Admin: 02/09/25 13:47 Dose: 800 mg Pantoprazole Sodium (Pantoprazole 40 Mg Tablet) 40 mg PO QDAY [facility] Stop: 03/11/25 19:29 Last Admin: 02/09/25 19:56 Dose: 40 mg Pantoprazole Sodium (Pantoprazole Inj 40 Mg Vial) 40 mg IV X1 ONE Stop: 02/09/25 22:00 Last Admin: 02/09/25 22:30 Dose: 40 mg Potassium Chloride (Potassium Chloride 20 Meq Tabcr) 40 meq PO X1 ONE Stop: 02/09/25 19:24 Last Admin: 02/09/25 19:55 Dose: 40 meq Assessment & Plan Plan Patient is a 59 years old male with PMHx of hyperlipidemia and hypertension presented to the ED due to fever, chills, and chest pain going across chest wall, labs showed negative troponin, EKG showed bigemeny, and he was admitted for further work up. He had rapid response called due to bradycardia, while evaluated his rhythm changed to bigemeny and some ST-segment changes were noted, he was started on aspirin 325 mg and heparin drip and cardiology was consulted. #Asymptomatic bradycardia. #Bigemeny. 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 He also reported using cocaine frequently in the past. When patient is bradycardic he reports no symptoms, denies any dizziness, chest pain, shortness of breath, weakness. Recommended to continue telemetry monitoring, as patient is asymptomatic no intervention is recommended at this time. #NSTEMI, ruled out. #Atypical chest pain. - Patient reported chest pain started yesterday with duration approximately 30 minutes, started while resting, reproducible with deep breathing or any pressure on chest. EKG did not show any ST segment changes. Troponin was negative during the hospital stay. He also reported some burning chest pain after food ingestion. He was taking aspirin 500 mg for a while prescribed in [place]. Recommended to discontinue heparin drip and aspirin as it might cause GERD symptoms, continue PPI. Management as per primary team: #Fever and chills. Plan of care discussed with attending Dr. Brown. Reji Longoria MD, PGY 2. Disclaimer: This note was dictated by speech recognition. Minor errors in retail assistant store manager may be present due to voice recognition software.
[2025-02-10 14:42] LABS: Partial Thromboplastin Time 37.3 Seconds (22.0-36.0)
[2025-02-10] MEDS: ATORVASTATIN CALCIUM 20 MG TABLET 40 MG PO (20:42)
[2025-02-11] VITALS: BP 145/73; PULSE 87; RESP 19; TEMP 36.4; O2SAT 93
[2025-02-11 04:00] VITALS: BP 133/87; PULSE 49; PULSE 60; RESP 13; TEMP 36.7; O2SAT 97
[2025-02-11 06:00] VITALS: BMI 27.7
[2025-02-11 06:07] LABS: Basophils % (Auto) 1 % (0-2.5); Eosinophils % (Auto) 0 % (0-10); Hematocrit 40.5 % (41.0-53.0); Hemoglobin 13.6 g/dL (13.5-16.0); Immature Granulocytes % (Auto) 0 % (0-0); Immature Granulocytes Auto 0.01 Thou/mm3 (0.00-0.00); Lymphocytes # (Auto) 1.7 Thou/mm3 (1.0-4.8); Lymphocytes % (Auto) 48 % (10-50); Mean Corpuscular HGB Conc 33.6 g/dl (31.0-37.0); Mean Corpuscular Hemoglobin 28.2 pg (25.0-35.0); Mean Corpuscular Volume 84 fL (80-100); Monocytes # (Auto) 0.5 Thou/mm3 (0.0-0.8); Monocytes % (Auto) 13 % (0-12); Neutrophils # (Auto) 1.4 Thou/mm3 (1.8-7.7); Neutrophils % (Auto) 39 % (37-80); Nucleated Red Blood Cell % 0 /100 WBC (0); Platelet Count 92 Thou/mm3 (140-440); RDW Standard Deviation 38.8 fL (35.1-43.9); Red Blood Count 4.82 Miln/mm3 (4.50-5.90); White Blood Count 3.6 Thou/mm3 (3.8-10.6)
[2025-02-11 06:16] LABS: INR 1.1 (0.9-1.3); Partial Thromboplastin Time 25.6 Seconds (22.0-36.0); Prothrombin Time 12.4 Seconds (9.0-12.2)
[2025-02-11 06:30] LABS: Alanine Aminotransferase 20 U/L (10-49); Albumin, Serum 3.9 gm/dL (3.5-5.0); Albumin/Globulin Ratio 1.4 (1.2-2.2); Alkaline Phosphatase 52 U/L (46-116); Anion Gap 11 (7-16); Aspartate Amino Transferase 30 U/L (0-34); BUN/Creatinine Ratio 15 Ratio (12-20); Bilirubin,Total 0.4 mg/dL (0.3-1.2); Blood Urea Nitrogen 15 mg/dL (9-23); Calcium 8.3 mg/dL (8.3-10.6); Calcium (Corrected) 8.4 mg/dL (8.5-10.1); Carbon Dioxide 27.3 mMol/L (20.0-31.0); Chloride 103 mMol/L (98-107); Estimated Creatinine Clearance 94.8 mL/min (>60); Globulin 2.7 gm/dL (2.3-3.5); Glucose 105 mg/dL (74-106); Magnesium 1.8 mg/dL (1.6-2.6); Osmolality,Calculated 282 (275-295); Sodium 141 mMol/L (136-145); Total Protein 6.6 gm/dL (5.7-8.2); eGFR > 60 See Note
[2025-02-11 08:00] VITALS: BP 124/81; PULSE 48; PULSE 88; RESP 16; TEMP 36.3; O2SAT 97
[2025-02-11] MEDS: PANTOPRAZOLE INJ 40 MG VIAL IV (08:18)
[2025-02-11] MEDS: CALCIUM CARBONATE 600 MG TABLET PO (08:18)
--- NOTE | 2025-02-11 09:24 | PC.SS ---
Follow up note: ECHO pending.
[2025-02-11 12:00] VITALS: BP 114/70; PULSE 46; PULSE 47; RESP 15; TEMP 36.3; O2SAT 97
--- NOTE | 2025-02-11 12:00 | ESDS_ITS ---
Planned Discharge Date 02/11/25 DS: Providers Provider Date of admission: 02/10/25 10:20 Primary care physician: Physician No Primary/Family Admitting Provider: Willian Cuevas MD Attending Provider on Admission: Willian Cuevas MD Consults: 02/09/25 19:31 Consult to Cardiology Routine Comment: Bradycardia Consulting Provider: Nathen Brown Attending Provider on DC: Willian Cuevas MD Discharging Provider: Willian Cuevas MD DS: Diagnosis Problem List Completed Was Problem List Reviewed/Reconciled?: Yes Hospital Course Hospital Course Hospital course: Js is a 59 y/o male with PMHx of prediabetes was admitted to [facility] on February 09, 2025 for an evaluation of fever, chills and symptomatic bradycardia. Patient arrived to the ED with a temperature of 103, heart rate 88, respiratory rate 18, blood pressure 149/80, saturating 94% on room air. He was worked up was found to have potassium of 3.4, BUN/creatinine 13 and 0.9 re spectively, white count 9.8, hemoglobin 12.8, AST ALT 26 and 19 respectively, BNP 54, TSH 1.25. Chest x-ray showed mild congestion. 2 EKGs were done, despite the read showing atrial fibrillation, however my interpretation is not A-fib as this appears to be some form of bigmeny, rate under 100, no ST changes, and possible delta wave seen in lead II of the first EKG. Patient was given 1 g Tylenol and ibuprofen 800 mg. Medicine was consulted and patient was admitted for observation for further workup. While admitted into the floors, cardiology, Dr. Brown, was consulted for further evaluation of bradycardia. Patient also had a rapid response for further evaluation of chest pain and ACS protocol was initiated, however was shortly stopped after as biomarkers and there was no ST changes on EKG. Differentials for the patient include possible sinus arrhythmia, WPW, sick sinus syndrome. Patient also had experienced a stressful event including going to a for one of his cousins that had passed couple days prior. Myocarditis had also been on the list of differentials however patient's bradycardia had improved and upon discharge heart rate had been going up to the 80s. Patient's chest pain likely related to GERD and was ruled as noncardiac chest pain. Patient was given Protonix, recommended to follow-up with primary care doctor upon outpatient and to establish care with a card iologist within 1 month upon discharge. He was also found to have some thrombocytopenia, however no active bleeding and was recommended to follow-up with his outpatient PCP with CBC. #Symptomatic bradycardia #ACS, ruled out #Noncardiac chest pain #GERD #Prediabetes #Thrombocytopenia Discharge Instructions: Establish care with a separator operator shellfish meats within one month to further investigate your low heart rate that has improved Follow up with your primary care doctor within one week Hold taking medicines from [place] until you see your primary care doctor Take your new medicine, Pantoprazole as prescribed as this is for your acid reflux, once a day in the morning 30 minutes before food Speak with your primary care doctor in regards to your prediabetes and lifestyle changes Return to ER if your symptoms worsen or return Discharge summary was reviewed with my attending Dr. Mason Buenrostro, PGY-1 Time Spent with Patient Time attestation: Total time spent providing and/or coordinating discharge services: Time spent: Greater than 30 minutes Exam Vital Signs Temp Pulse Resp BP Pulse Ox O2 Del Method 97.4 F 48 L 16 124/81 97 Room Air 02/11/25 08:00 02/11/25 08:00 02/11/25 08:00 02/11/25 08:00 02/11/25 08:00 02/11/25 08:00 Narrative Exam General: AAOx3, NAD, Nauruan-speaking male, well-built HEENT: Moist mucous membranes, conjunctiva clear, EOMI, PERRLA, Cardiovascular: S1, S2, radial pulses +2 bilat, bradycardia, reproducible chest pain that is minimal and right and left lower pectoralis Pulmonary: CTAB bilat no cough, no wheezing GI: No tenderness to light or deep palpitation, no guarding, rigidity, rebound tenderness or distension Extremities: No presence of trace or pitting edema in lower extremities bilaterally, dorsalis pedis pulses +2 bilaterally Neuro: AAOx3, no focal motor or sensory deficits in the UE or LE bilat Psych: Good judgement, thought and behavior. Cooperative Discharge Plan Plan Patient Disposition: HOME (Self Care) Care Plan Goals: Discharge Instructions: Establish care with a separator operator shellfish meats within one month to further investigate your low heart rate that has improved Follow up with your primary care doctor within one week Hold taking medicines from [place] until you see your primary care doctor Take your new medicine, Pantoprazole as prescribed as this is for your acid reflux, once a day in the morning 30 minutes before food Speak with your primary care doctor in regards to your prediabetes and lifestyle changes Return to ER if your symptoms worsen or return Instrucciones para el wilfrid: Establezca atenci?n con un cardi?logo dentro de un mes para investigar m?s a fondo latif frecuencia card?vickey baja, que vaughn chitra. Consulte con latif m?dico de cabecera dentro de kiran semana. Suspenda los medicamentos de [place] hasta que scarlett a latif m?dico de cabecera. [place] latif nuevo medicamento, pantoprazol, seg?n lo recetado, ya que es para el reflujo ?cido, kiran vez al d?a por la ma?all, 30 minutos antes de las comidas. Hable con latif m?dico de cabecera sobre latif prediabetes y los cambios en latif estilo de jerrell. Regrese a urgencias si urvashi s?ntomas empeoran o regresan. Prescriptions/Referrals Prescriptions/Med Rec: New pantoprazole 40 mg tablet,delayed release (DR/EC) 40 mg PO QDAY Qty: 30 1RF Rx Instructions: Take one tablet in the morning thirty minutes before food every day Referrals: No Primary/Family,Physician [Primary Care Provider] - Patient/Caregiver Discharge Instructions Discharge Activity: resume usual activities Education Materials: Gastroesophageal Reflux ..., Understanding Bradycardia, ED GERD (Adult) Print Language: Nauruan Stand Alone Forms: Lottie Award Info., Patient Portal Info Letter Discharge Order Discharge Orders: Discharge (Routine); Ordered 02/11/25 Ordered By: Cherie Buenrostro Quality Discharge Quality Measures VTE prophylaxis (Heparin) Attestestation MD Attestation I have examined the patient, reviewed labs and imaging findings, discussed the case with the resident(s), and reviewed entered orders. I agree with the plan of care as outlined in this note. Time Spent: [address] Mason MD
--- NOTE | 2025-02-11 14:56 | PC.SS ---
SS met with patient regarding his d/c plan.? Pt is alert/oriented.? Pt was admitted for Bradycardia.? Pt confirmed demographic and contact information is correct on facesheet.? Pt resides with and kids.? Pt ambulates independently without assistance or DME.? Pt is ok with all ADLs.? Patient?s pharmacy of choice is [facility] in [place].? Pt named his dtr Rebecca Haynes medical decision maker if he is unable.? Patient?s choice is to return home upon d/c.? Pt followed up with PCP 1 month ago. D/C plan:? Return home Next of Kin:? Marquise Haynes dtr, phone# [phone] PCP:? [facility] in [place] Address:? Correct on facesheet
[2025-02-11 15:13] LABS: Cocci Serology, IgM Negative (Negative)
--- NOTE | 2025-02-11 19:23 | ECHO_ITS ---
Transthoracic Echo Report Ht (in): 74 Wt (lb): 216 Exam Location: Portable Status: Inpatient Rear Admiral: CARYN Gonzalez^^^^ Indications: Procedure Performed: BP: / HR: Technical Quality: Fair MEASUREMENTS (Male / Female) Normal Values 2D ECHO LV Diastolic Diameter PLAX 4.5 cm 4.2 - 5.9 / 3.9 - 5.3 cm LV Systolic Diameter PLAX 3.2 cm IVS Diastolic Thickness 1.0 cm 0.6 - 1.0 / 0.6 - 0.9 cm LVPW Diastolic Thickness 1.3 cm 0.6 - 1.0 / 0.6 - 0.9 cm LV Relative Wall Thickness 0.5 LVOT Diameter 2.0 cm Aortic Root Diameter 3.9 cm LA Systolic Diameter LX 3.3 cm 3.0 - 4.0 / 2.7 - 3.8 cm LA Volume Index 36.0 cm?/m? 16 - 28 cm?/m? Ascending Aorta Diameter 3.3 cm DOPPLER AV Peak Velocity 117.0 cm/s AV Peak Gradient 5.5 mmHg AV Mean Gradient 3.0 mmHg AV Velocity Time Integral 22.4 cm LVOT Peak Velocity 93.8 cm/s LVOT Peak Gradient 3.5 mmHg LVOT Velocity Time Integral 18.8 cm AV Area Cont Eq vti 2.6 cm? AV Area Cont Eq pk 2.5 cm? MV Area PHT 3.7 cm? MR Peak Velocity 347.0 cm/s MR Peak Gradient 48.2 mmHg Mitral E Point Velocity 58.0 cm/s LV E' Lateral Velocity 10.4 cm/s Mitral E to LV E' Lateral Ratio 5.6 LV E' Septal Velocity 6.7 cm/s Mitral E to LV E' Septal Ratio 8.6 TR Peak Velocity 210.0 cm/s TR Peak Gradient 17.6 mmHg PV Peak Velocity 97.6 cm/s PV Peak Gradient 3.8 mmHg RVOT Peak Velocity 52.5 cm/s FINDINGS Left Ventricle Normal left ventricular size, wall thickness, systolic function with no obvious regional wall motion abnormalities. There is grade I diastolic dysfunction of the left ventricle (impaired relaxation pattern). The left ventricular ejection fraction is normal, estimated at 60-65%. Right Ventricle The right ventricle is normal in size and systolic function. The estimated right ventricular systolic pressure, 25 mmHg. Left Atrium The left atrium is normal by two-dimensional, color flow and Doppler imaging with no structural abnormalities, no thrombus formation present. Right Atrium The right atrium is normal by two-dimensional imaging, color flow and Doppler imaging with no structural abnormalities, no thrombus formation present. Atrial Septum The interatrial septum appears normal with no evidence of a shunt. Aorta The aorta is normal by two-dimensional, color flow and Doppler interrogation. Mitral Valve Mild mitral regurgitation. Mild mitral annular calcification. Aortic Valve Aortic valve sclerosis. Tricuspid Valve There is mild tricuspid valve regurgitation. Pulmonic Valve Trivial pulmonic valve regurgitation. Vessels The pulmonary artery appears normal. The inferior vena cava pulmonary and hepatic veins appear normal. Pericardium The pericardium is normal by two-dimensional imaging. There is no significant pericardial effusion. CONCLUSIONS indication: bradycardia Normal size LV NORMAL WALL MOTION with EF 60-65%. RV appears normal with RVSP 25 mmHg. Mild MR & TR AOV sclerosis Gricel Lucia (Electronically Signed) Final Date: 11 Feb 2025 10:49
[2025-02-13 13:06] LABS: Cocci Serology, IgG Negative (Negative)
== END 2025-02-11 12:46 | disposition home or self-care (01) | DRG 201 ==
LOC: SERX 15:27 → SERHOLD 19:50 → S2NX 02-10 10:39 → SERHOLD 02-12 06:22
PROVIDERS: Nurse Practitioner Family; Student in an Organized Health Care Education/Training Program; Admitting Provider Student in an Organized Health Care Education/Training Program; Emergency Provider Emergency Medicine; Visit Provider Student in an Organized Health Care Education/Training Program
DX: R00.1 Bradycardia, unspecified (principal); K21.9 Gastro-esophageal reflux disease without esophagitis; R73.03 Prediabetes; D69.6 Thrombocytopenia, unspecified; I11.9 Hypertensive heart disease without heart failure; I48.91 Unspecified atrial fibrillation; B38.0 Acute pulmonary coccidioidomycosis; I49.5 Sick sinus syndrome; Z88.0 Allergy status to penicillin
CPT/HCPCS: 36415; 71046; 80053; 80061; 80202; 80307; 81001; 82550; 83036; 83540; 83550; 83690; 83735; 83880; 84100; 84443; 84484; 85025; 85046; 85610; 85730; 86331; 86635; 87040; 87081; 87400; 87811; 93005; 93306; 96365; 99285; G0378; J0612; J0696; J1644; J2470; J3370; J3475; J3480; J7030; J7040; A9270

== ENCOUNTER 2025-03-14 05:08 | Emergency (ER) | payer MEDICAID, SELFPAY ==
[2025-03-14 05:28] VITALS: BP 143/68; PULSE 46; RESP 15; TEMP 37; O2SAT 97
[2025-03-14 05:29] VITALS: BMI 28.7
--- NOTE | 2025-03-14 06:19 | XR_ITS ---
Examination: PA lateral chest 2 views TECHNIQUE: Upright PA and lateral chest 2 views Date and time: March 15, 2025 at 0708 hours Comparison February 09, 2025 INDICATIONS: Upper abdominal pain radiating to the back today, chest pain FINDINGS: Mild prominence of ventricle No pneumonia or pulmonary edema The osseous structures are intact IMPRESSION: Mild enlargement cardiac contour. No pneumonia or pulmonary edema
--- NOTE | 2025-03-14 06:19 | EDNOTE_ITS ---
ED Abdominal Pain RME/HPI General Chief Complaint: Abdominal Pain Stated complaint: UPPER ABD PAIN RADIATING TO BACK Time seen by provider: 03/14/25 06:11 Arrival date/time: 03/14/25 05:08 59-year-old male with no known medical history presents to the emergency room with a chief complaint of 10 out of 10 epigastric pain that radiates to his left chest and back x 3 days Source: patient Mode of arrival: ambulatory Limitations: no limitations Related Data Previous Rx's ?Medication ?Instructions ?Recorded pantoprazole 40 mg tablet,delayed 40 mg PO QDAY #30 ta bs 02/11/25 release Allergies Allergy/AdvReac Type Severity Reaction Status Date / Time Penicillins Allergy Verified 03/14/25 05:09 Review of Systems Review of Systems Systems Reviewed: All systems reviewed, normal except as documented Constitutional Constitutional: Reports system reviewed and no additional complaints, except as documented, Denies fatigue, Denies fever(s), Denies headache(s) and Denies weakness Eyes Eyes: Reports system reviewed and no additional complaints, except as documented, Denies blurry vision and Denies change in vision ENT Ears, Nose, Mouth, and Throat: Reports system reviewed and no additional complaints, except as documented, Denies otalgia, Denies headache(s), Denies nasal congestion, Denies throat swelling and Denies vertigo Cardiovascular Cardiovascular: Reports system reviewed and no additional complaints, except as documented, Denies chest pain, Denies dyspnea and Denies dyspnea on exertion Respiratory Respiratory: Reports system reviewed and no additional complaints, except as documented, Denies chest congestion, Denies cough, Denies dyspnea, Denies dyspnea on exertion and Denies wheezing Gastrointestinal Gastrointestinal: Reports system reviewed and no additional complaints, except as documented, Reports abdominal pain, Reports cramping, Reports nausea and Reports vomiting Genitourinary Genitourinary: Reports system reviewed and no additional complaints, except as documented, Denies dysuria and Denies hematuria Musculoskeletal Musculoskeletal: Reports system reviewed and no additional complaints, except as documented and Denies back pain Integumentary/Breasts Skin/Breast: Reports system reviewed and no additional complaints, except as documented and Denies wounds Neurologic Neurologic: Reports system reviewed and no additional complaints, except as documented, Denies confusion, Denies headache(s), Denies lack of coordination, Denies vertigo and Denies weakness Psychiatric Psychiatric: Reports system reviewed and no additional complaints, except as documented, Denies anxiety, Denies confusion, Denies depression, Denies paranoia, Denies suicidal ideation and Denies tactile hallucinations Endocrine Endocrine: Reports system reviewed and no additional complaints, except as documented and Denies fatigue Hematologic/Lymphatic Hematologic/Lymphatic: Reports system reviewed and no additional complaints, except as documented and Denies lymphadenopathy Allergic/Immunologic Allergic/Immunologic: Reports system reviewed and no additional complaints, except as documented, Denies throat swelling, Denies urticaria and Denies wheezing Past Medical History Past Medical History CARDIAC: Positive Hypertension; Negative Congestive Heart Failure RESPIRATORY: Negative Chronic Obstructive Pulmonary Disease (COPD) GENITOURINARY: Negative Renal Disease ENDOCRINE: Positive Diabetes Mellitus Type 2; Negative Diabetes Mellitus Type 1 OTHER HISTORY: Positive Blood Transfusions; Negative Blood Transfusion Reaction Social History SMOKING STATUS: Never smoker ED Exam General Limitations: Present no limitations General appearance: Present alert and in no apparent distress Head Head exam: Present atraumatic Eye Eye exam: Present normal appearance, PERRL and EOMI ENT ENT exam: Present normal exam, normal oropharynx and mucous membranes moist Neck Neck exam: Present normal inspection, full ROM and trachea midline Chest Chest inspection: Present normal inspection and symmetric chest wall rise Respiratory Respiratory exam: Present normal lung sounds bilaterally; Absent respiratory distress, wheezes, stridor, accessory muscle use or prolonged expiratory phase Cardiovascular Cardiovascular exam: Present regular rate, normal rhythm, normal heart sounds, +S1 and +S2; Absent bradycardia, tachycardia, irregular rhythm, systolic murmur, diastolic murmur, rubs, gallop, clicks or JVD Abdominal Exam Abdominal exam: Present soft, tenderness and normal bowel sounds Abdominal tenderness: Present epigastrium and moderate Extremities Exam Extremities exam: Present normal inspection and full ROM Back Exam Back exam: Present normal inspection and full ROM Neurological Exam Neurological exam: Present alert, oriented X3 and CN II-XII intact Psychiatric Psychiatric exam: Present normal affect and normal mood Skin Skin exam: Present warm, dry, intact and normal color Course Quality Measures none Orders Category Date Time Status EKG (ED ONLY) *Do not use* NOW Care 03/14/25 06:[address] abdomen pelvis wo con Stat Exams 03/14/25 06:19 Completed EKG (ED Only) Stat Exams 03/14/25 06:19 Draft XR chest 2V Stat Exams 03/14/25 06:19 Completed BNP [B-Type Natriuretic Peptide] Stat Lab 03/14/25 07:00 Completed CBC Stat Lab 03/14/25 07:00 Completed CMP [Comprehensive Metabolic Panel] Stat Lab 03/14/25 07:00 Completed Lipase Stat Lab 03/14/25 07:00 Completed Troponin I Stat Lab 03/14/25 07:00 Completed UA [Urinalysis] Stat Lab 03/14/25 07:00 Completed Urine Culture Stat Lab 03/14/25 07:00 Received mg Hyd/Al Hyd/Mariana Susp [Maalox Susp] Med 03/14/25 06:18 Discontinued 30 ml PO X1 ONE Vital Signs Vital signs: Vital Signs Temperature 98.6 F 03/14/25 05:28 Pulse Rate 46 L 03/14/25 05:28 Respiratory Rate 15 03/14/25 05:28 Blood Pressure 143/68 H 03/14/25 05:28 Pulse Oximetry (%) 97 03/14/25 05:28 Oxygen Delivery Method Room Air 03/14/25 05:28 Abdominal Pain MDM MDM Narrative MDM Narrative:: 59-year-old male with no known medical history presents to the emergency room with a chief complaint of 10 out of 10 epigastric pain that radiates to his left chest and back x 3 days Patient is hemodynamically stable and in no apparent distress Physical examination shows epigastric pain that radiates to his chest with palpation. There is no right lower quadrant right upper quadrant abdominal pain. There is a negative Haney sign EKG shows normal sinus rhythm. CBC CMP are within normal limits CT of the abdomen and pelvis was negative for any acute findings however there was some thickening of the bladder wall. Our radiologist recommends an ultrasound to rule out any bladder cancer. The patient was given education regarding this topic and given strict orders to follow-up with her primary care provider for an ultrasound as well as a possible referral for a silk screen printer machine for this epigastric pain Patient was discharged and educated to follow-up with primary care provider in the next 24 to 48 hours and return to the emergency room for any evidence of worsening signs or symptoms Patient data External records reviewed:: [facility] previous records Clinical information provided by:: patient Social determinants that could affect healthcare access:: none Patient has the following chronic illnesses:: No chronic illness How is presenting disease/condition affected by chronic disease/condition?: no chronic disease Evaluation data The following diagnostics were reviewed and interpreted by me:: lab results and radiology exam(s) Lab and/or radiology exams considered but not ordered:: Labs and radiology exams considered in Interpretation Summary: CT abdomen and pelvis-Findings: Mild enlargement cardiac contour No focal liver or splenic lesions No gallstones No pancreatic or adrenal mass No renal or ureteral calculi, no hydronephrosis Aorta normal size Normal appendix No bowel obstruction No diverticulitis Transrectal prostate dimension 5 cm Contracted urinary bladder with wall thickening Moderate disc narrowing L5-S1 IMPRESSION: Mild renal parenchymal transformation, no renal or ureteral calculi, no hydronephrosis Normal appendix No bowel obstruction Contracted urinary bladder with significant wall thickening, differential would include cystitis, early bladder cancer not excluded, recommend urinary bladder sonography follow-up Moderate degenerative disc disease L5-S1 Medications / Prescriptions Medications or Prescriptions considered but not ordered:: Medication given Medication administrations:: Medication Administration History Discontinued Medications Al Hydrox/Mg Hydrox/Simethicone (Mg Hyd/Al Hyd/Mariana (Maalox Reg) Susp 30 Ml Udc) 30 ml PO X1 ONE Stop: 03/14/25 06:19 Last Admin: 03/14/25 06:32 Dose: 30 ml Documented By: Medication given Consultations Consultation(s) initiated? (list below): No Diagnosis Differential diagnosis abdominal pain: abdominal pain, acute appendicitis, constipation, gastroenteritis and small bowel obstruction Most likely diagnosis given after review of the tests above:: Gastroenteritis Admission Indicated Admission indicated?: not indicated Admission Request Was there a request for admission?: No Disposition Plan Disposition Plan: Discharge Discharge Attestation Discharge Attestation: The patient and all family members were given an opportunity to ask questions and understood the discharge instructions. Discharge instructions specifically effects, indications for sooner follow up or return to the emergency department, and the expected course of current diagnosis. Patient condition: Stable Discharge Plan Plan Patient Disposition: HOME (Self Care) Discharge Disposition comment: Stable Prescriptions/Referrals Prescriptions/Med Rec: No Action pantoprazole 40 mg tablet,delayed release (DR/EC) 40 mg PO QDAY Qty: 30 1RF Rx Instructions: Take one tablet in the morning thirty minutes before food every day Referrals: No Primary/Family,Physician [Primary Care Provider] - In 1 week Problem List Clinical Impression: Gastroenteritis Patient/Caregiver Discharge Instructions Education Materials: ED Gastroenteritis, Noninfectious Additional Instructions: Please follow-up with your primary care provider in the next [address] of your abdomen and pelvis was negative for any acute findings. There was an abnormality in your bladder that was found on the CT scan. You will need to have an outpatient ultrasound to rule out any early bladder cancer. If your sinus symptoms continue you will need a referral to a silk screen printer machine for possible endoscopy as your symptoms seem to be epigastric related For any evidence of worsening signs or symptoms return to the emergency room immediately Print Language: Senegalese Stand Alone Forms: Lottie Award Info., Patient Portal Info Letter PA/SARAH Supervising Physician SAMIA/SARAH Supervising Physician: Dr Mg
--- NOTE | 2025-03-14 06:19 | EKG_ITS ---
[facility] Test Date: 2025-03-14 Pat Name: YANNICK AIKEN Department: Room: - Gender: Male Rejected Items Clerk: : 1965 Requested By: Viet Valdes Order Number: [id number] Reading MD: Viet Valdes Measurements Intervals Ranger Rate: 42 P: 52 MO: 181 QRS: 62 QRSD: 100 T: 41 QT: 461 QTc: 387 Interpretive Statements SINUS BRADYCARDIA POSSIBLE LEFT ATRIAL ENLARGEMENT [-0.1mV P-WAVE IN V1/V2] Compared to ECG 02/09/2025 21:52:54 Myocardial infarct finding no longer present /store/S0/[id number].pdf
--- NOTE | 2025-03-14 06:19 | XR_ITS ---
Examination: CT abdomen and pelvis without contrast. Coronal 3-D reconstructions. Sagittal 2-D reconstructions. Date and time of exam:March 14, 2025 0628 hours INDICATIONS: Upper abdominal pain radiating to the back CTDI: vol (mGy): 8.79 DLP: (mGycm): 543 Technique: Axial images of the abdomen have been obtained, 3 mm slice thickness Intravenous contrast material has not been administered. Low dose protocols were performed. One or more of the following dose reduction techniques were used; automated exposure control, adjustment of the mA and/or KV according to patient size, use of iterative reconstruction technique. Findings: Mild enlargement cardiac contour No focal liver or splenic lesions No gallstones No pancreatic or adrenal mass No renal or ureteral calculi, no hydronephrosis Aorta normal size Normal appendix No bowel obstruction No diverticulitis Transrectal prostate dimension 5 cm Contracted urinary bladder with wall thickening Moderate disc narrowing L5-S1 IMPRESSION: Mild renal parenchymal transformation, no renal or ureteral calculi, no hydronephrosis Normal appendix No bowel obstruction Contracted urinary bladder with significant wall thickening, differential would include cystitis, early bladder cancer not excluded, recommend urinary bladder sonography follow-up Moderate degenerative disc disease L5-S1
[2025-03-14] MEDS: MG HYD/AL HYD/SIME (Maalox Reg) SUSP 30 ML UDC PO (06:32)
[2025-03-14 07:09] LABS: Collection Type, Urine Clean Catch
[2025-03-14 07:26] LABS: Basophils % (Auto) 1 % (0-2.5); Eosinophils # (Auto) 0.1 Thou/mm3 (0.0-0.5); Eosinophils % (Auto) 1 % (0-10); Hematocrit 38.6 % (41.0-53.0); Hemoglobin 13.5 g/dL (13.5-16.0); Immature Granulocytes % (Auto) 0 % (0-0); Immature Granulocytes Auto 0.01 Thou/mm3 (0.00-0.00); Lymphocytes # (Auto) 1.9 Thou/mm3 (1.0-4.8); Lymphocytes % (Auto) 38 % (10-50); Mean Corpuscular Hemoglobin 28.1 pg (25.0-35.0); Mean Corpuscular Volume 80 fL (80-100); Monocytes # (Auto) 0.3 Thou/mm3 (0.0-0.8); Monocytes % (Auto) 7 % (0-12); Neutrophils # (Auto) 2.7 Thou/mm3 (1.8-7.7); Neutrophils % (Auto) 53 % (37-80); Nucleated Red Blood Cell % 0 /100 WBC (0); Platelet Count 151 Thou/mm3 (140-440); RDW Standard Deviation 37.4 fL (35.1-43.9); White Blood Count 5.1 Thou/mm3 (3.8-10.6)
[2025-03-14 07:38] LABS: Amorphous Crystals,Urine Present (Absent); Bacteria,Urine Rare; Bilirubin,Urine Negative (Negative); Blood,Urine Negative (Negative); Clarity,Urine Clear (Clear/Hazy); Color,Urine Lt-Yellow (Lt Yel-Yel); Glucose, Urine Negative (Negative); Hyaline Casts,Urine < 1 /hpf (0-1); Ketones,Urine Negative (Negative); Leukocyte Esterase,Urine Negative (Negative); Nitrite,Urine Negative (Negative); PH,Urine 7.5 (5.0-7.0); Protein,Urine Negative (Neg - Trace); RBC,Urine 1 /hpf (0-3); Specific Gravity,Urine 1.017 (1.001-1.035); Squamous Epithelial Cell,Urine < 1 /hpf (0-5); Urobilinogen,Urine Negative mg/dL (0.0-1.0); WBC,Urine 1 /hpf (0-5)
[2025-03-14 07:42] LABS: Alanine Aminotransferase 26 U/L (10-49); Albumin, Serum 4.3 gm/dL (3.5-5.0); Albumin/Globulin Ratio 1.8 (1.2-2.2); Alkaline Phosphatase 56 U/L (46-116); Anion Gap 10 (7-16); Aspartate Amino Transferase 38 U/L (0-34); BUN/Creatinine Ratio 13 Ratio (12-20); Bilirubin,Total 0.6 mg/dL (0.3-1.2); Blood Urea Nitrogen 13 mg/dL (9-23); Calcium 8.7 mg/dL (8.3-10.6); Calcium (Corrected) 8.7 mg/dL (8.5-10.1); Carbon Dioxide 30.3 mMol/L (20.0-31.0); Chloride 104 mMol/L (98-107); Globulin 2.4 gm/dL (2.3-3.5); Glucose 110 mg/dL (74-106); Lipase 40 U/L (12-53); Osmolality,Calculated 287 (275-295); Potassium 4.2 mMol/L (3.4-5.1); Sodium 144 mMol/L (136-145); Total Protein 6.7 gm/dL (5.7-8.2); Troponin I < 0.020 ng/mL (0.0-0.045); eGFR > 60 See Note
[2025-03-14 07:50] LABS: B-Type Natriuretic Peptide 37 pg/mL (0-100)
[2025-03-14 08:01] VITALS: BP 133/78; PULSE 47; RESP 17; TEMP 36.9; O2SAT 98
== END 2025-03-14 09:01 | disposition home or self-care (01) ==
PROVIDERS: Nurse Practitioner Family; Emergency Provider Emergency Medicine
DX: K52.9 Noninfective gastroenteritis and colitis, unspecified (principal); M51.379 Other intervertebral disc degeneration, lumbosacral region without mention of lumbar back pain or lower extremity pain; R07.9 Chest pain, unspecified
CPT/HCPCS: 36415; 71046; 74176; 80053; 81001; 83690; 83880; 84484; 85025; 87086; 93005; 99284; A9270